=== PATIENT | female | born 1970 | race Caucasian/White ===

== ENCOUNTER 2018-08-02 07:27 | Day surgery (SDC) | payer BC ==
[~2018-08-02 07:27] MED LIST: Dextrose 5%-0.45% NaCl 1,000 ML IV SCH; Midazolam 1 MG/ML 2 ML SDV ONE; fentaNYL 100 MCG/2 ML SDV ONE
[2018-08-02] MEDS ORDERED: Midazolam 1 MG/ML 2 ML SDV IV ONE ×3 (07:28→09:00)
[2018-08-02] MEDS ORDERED: fentaNYL 100 MCG/2 ML SDV IV ONE ×3 (07:28→08:59)
--- NOTE | 2018-08-02 12:43 | OR ---
DATE: 08/02/2018 PROCEDURE: Esophagogastroduodenoscopy and multiple pinch biopsies. INSTRUMENT USED: [id number]-HQ190 Olympus video panendoscope. PREMEDICATIONS: No oral topical anesthesia used. Fentanyl 100 mcg intravenous, Versed 2 mg intravenous. Nasal O2 cannula. The procedure was done under pulse oximetry, BP recording, and quality assurance monitor final. INDICATION: The patient with longstanding heartburn and regurgitation as well as upper abdominal pain, unexplained and not responsive to medical measures, PPI. Esophagogastroduodenoscopy is performed for detection of any active erosive lesions, Garza's esophagus and/or malignancy also under consideration. H. pylori status to be determined. Endoscopic hemostasis therapy if needed. DESCRIPTION OF PROCEDURE:The scope was passed with ease. Adequate visualization of the esophagus was made from proximal to distal areas. No upper esophageal lesions identified. No distal esophageal stricture. No uphill or downhill esophageal varices. No Aurora-Larios tear. Sliding hiatal hernia was noted. Grade D erosive changes were noted by Sawyer criteria. No esophageal polyp or tumor mass identified. Gastric fundus examination by retroflexion showed Patel's erosions without bleeding from them. No gastric ulcer, malignant mass, or vascular ectasia identified. Duodenal bulb showed no ulcer. Visualized second part of the duodenum was unremarkable. Multiple pinch biopsies were taken from the gastric antrum and proximal body and sent for PyloriTek test for H. pylori and if negative in an hour, the tissue is to be sent for histopathology. No bleeding was noted from any of the visualized areas at the completion of examination. Photographs were taken of the duodenal bulb, gastric antrum, fundus, and distal esophagus. IMPRESSION: 1. Grade D gastroesophageal reflux disease. 2. Sliding hiatal hernia. 3. Patel's erosions. The patient tolerated the procedure well. [facility] /[id number]
== END 2018-08-02 11:00 | disposition home or self-care (01) ==
LOC: DL.ENDO 07:27
PROVIDERS: ATTEND Internal Medicine Gastroenterology
DX: K29.50 Unspecified chronic gastritis without bleeding (principal); K21.0 Gastro-esophageal reflux disease with esophagitis; K25.9 Gastric ulcer, unspecified as acute or chronic, without hemorrhage or perforation; K44.9 Diaphragmatic hernia without obstruction or gangrene; J45.909 Unspecified asthma, uncomplicated; E03.9 Hypothyroidism, unspecified; E06.3 Autoimmune thyroiditis; E66.09 Other obesity due to excess calories; Z68.35 Body mass index [BMI] 35.0-35.9, adult
CPT/HCPCS: 43239; 87077; J2250; J3010; J7042

== ENCOUNTER 2020-12-12 15:12 | Emergency (ER) | payer BC ==
[2020-12-12] MEDS ORDERED: Lidocaine 2% with EPINEPHrine 1:200,000 20 ML SDV INJECT ONE (15:45)
[2020-12-12] MEDS: Lidocaine 2% Viscous Solution 15 ML Cup PO ONE ×2 (15:53→16:55)
--- NOTE | 2020-12-12 15:58 | EDM.PDOC ---
<Rony Monge Garrett - Last Filed: 12/12/20 17:21> ED HPI GENERAL MEDICAL PROBLEM - General Chief Complaint: Skin Complaint Stated Complaint: SIST INFECTION TOP OF LEFT SIDE OF HEAD. SWELLING Time Seen by Provider: 12/12/20 15:35 Source of Information: Reports: Patient History Limitations: Reports: No Limitations - History of Present Illness INITIAL COMMENTS - FREE TEXT/NARRATIVE: 50 y/o F c/o abscess on the top of her head that started a few days ago. Pt saw her PCP who put her on Keflex. Pt has been taking her meds as prescribed but now has developed swelling down the L side of her face and over her L eye. Pt is now experiencing significant pain at the site of the abscess. Denies vision prob, fever, cough, chills, drugs, etoh, cp, db, abd pn, rash, recent trauma. Duration: Day(s): Location: Reports: Head Quality: Reports: Sharp Severity: Moderate Improves with: Reports: None Worsens with: Reports: None Left Head Pain Score (Numeric/FACES): 8 - Related Data Allergies Allergy/AdvReac Type Severity Reaction Status Date / Time Iodinated Contrast Media Allergy Hives Verified 12/12/20 15:20 [Iodinated Contrast- Oral and IV Dye] iodine Allergy Itching Verified 12/12/20 15:20 latex Allergy Itching Verified 12/12/20 15:20 Home Meds: Home Meds Ibuprofen 400 mg PO Q6H PRN 08/01/18 [History] Levothyroxine 75 mcg PO ACBREAKFAST 08/01/18 [History] Multivitamin [Multiple Vitamins] 1 tab PO DAILY 08/01/18 [History] Omeprazole 20 mg PO DAILY 08/01/18 [History] diphenhydrAMINE [Benadryl] 25 mg PO ASDIRECTED 08/01/18 [History] Past Medical History HEENT History: Reports: Allergic Rhinitis, Impaired Vision Cardiovascular History: Reports: None Respiratory History: Reports: None Gastrointestinal History: Reports: Colon Polyp, GERD, Hiatal Hernia Genitourinary History: Reports: UTI, Recurrent [employer] History: Reports: Endometriosis, Musculoskeletal History: Reports: None Neurological History: Reports: None Psychiatric History: Reports: None Endocrine/Metabolic History: Reports: Hypothyroidism, Obesity/BMI 30+, Other (See Below) Other Endocrine/Metabolic History: HX OF ALBERT'S THYROIDITIS Hematologic History: Reports: None Immunologic History: Reports: None Oncologic (Cancer) History: Reports: None Dermatologic History: Reports: None - Infectious Disease History Infectious Disease History: Reports: None - Past Surgical History Head Surgeries/Procedures: Reports: None HEENT Surgical History: Reports: None Cardiovascular Surgical History: Reports: None Respiratory Surgical History: Reports: None GI Surgical History: Reports: Colonoscopy, EGD, Polypectomy Female Surgical History: Reports: Section, Hysterectomy Endocrine Surgical History: Reports: None Neurological Surgical History: Reports: None Musculoskeletal Surgical History: Reports: None Oncologic Surgical History: Reports: None Dermatological Surgical History: Reports: None Social & Family History - Family History Neurological: Reports: Alzheimers Disease Oncologic: Reports: Lung, Thyroid - Tobacco Use Tobacco Use Status *Q: Never Tobacco User - Caffeine Use Caffeine Use: Reports: Coffee Other Caffeine Use: AM COFEE - Recreational Drug Use Recreational Drug Use: No ED ROS GENERAL - Review of Systems Review Of Systems: Comprehensive ROS is negative, except as noted in HPI. ED EXAM, SKIN/RASH Exam: See Below Exam Limited By: No Limitations General Appearance: Alert Eye Exam: Bilateral Eye: PERRL Ears: Normal External Exam, Normal Canal, Hearing Grossly Normal, Normal TMs Nose: Normal Inspection, Normal Mucosa, No Blood Throat/Mouth: Normal Inspection, Normal Lips, Normal Teeth, Normal Gums, Normal Oropharynx, Normal Voice, No Airway Compromise Head: Other (2 cm abscess to the top of her head about 8 cm behind the frontal hair line. Swelling to the L side anterior parietal region and above the L eye as well as L side of face.) Neck: Normal Inspection, Supple, Non-Tender, Full Range of Motion Respiratory/Chest: No Respiratory Distress, Lungs Clear, Normal Breath Sounds Cardiovascular: Normal Peripheral Pulses, Regular Rate, Rhythm GI/Abdominal: Soft, Non-Tender (Female) Exam: Deferred Rectal (Female) Exam: Deferred Neurological: Alert, Oriented Psychiatric: Normal Affect, Normal Mood Skin: Warm, Dry, Intact, Other (except for previously described area of head.) Departure - Departure Disposition: Home, Self-Care 01 Condition: Good Clinical Impression: Abscess - Discharge Information *PRESCRIPTION DRUG MONITORING PROGRAM REVIEWED*: Not Applicable *COPY OF PRESCRIPTION DRUG MONITORING REPORT IN PATIENT DEACON: Not Applicable Instructions: Skin Abscess, [id number] Forms: ED Department Discharge Additional Instructions: Rx given Bactrim DS #20 to take 1 by mouth 2 times per day for 10 days. Follow up with your primary care facility in 10- 14 days to have your stitches removed. Use Tylenol and Motrin for pain as need. Keep the incision site clean and dry for 24 hrs. Expect some drainage from the incision site. Use Bacitracin or triple antibiotic ointment on incision site. If any new symptoms or concerns develop contact your primary care physician or return to the ER <Brian Van - Last Filed: 12/12/20 17:31> ED SKIN PROCEDURES - I&D Site: anterior scalp Skin Prep: Providone-Iodine (Betadine) Local Anesthesia: Lidocaine: 2% with EPI Local Anesthetic Volume: Other (8 mL) Area Incised With: 15 Blade Drainage: Purulent, Bloody, Moderate Amount Probed to Break Up Loculations: Yes Packed With: None Sterile Dressinx4(s) Complications: No Progress/Comments: The incision was 4 cm in length and was partially closed at the conclusion of the procedure using 2 stiches (3-0). The incision was partially left open to promote drainage. Course - Vital Signs Last Recorded V/S: Last Vital Signs Temp 97.1 F 12/12/20 15:24 Pulse 80 12/12/20 15:24 Resp 18 12/12/20 15:24 BP 136/82 12/12/20 15:24 Pulse Ox 97 12/12/20 15:24 - Orders/Labs/Meds Orders: Active Orders 24 hr Category Date Time Status CULTURE WOUND [RM] Stat Lab 12/12/20 17:22 Ordered Meds: Medications Discontinued Medications Generic Name Dose Route Start Last Admin Trade Name Juan Diego PRN Reason Stop Dose Admin Vancomycin HCl 1,500 mg/ 500 mls @ 333.333 mls/hr 12/12/20 15:48 12/12/20 16:02 Sodium Chloride IV 12/12/20 17:17 333.333 mls/hr ONETIME ONE Administration Ibuprofen 800 mg 12/12/20 17:01 12/12/20 17:06 Ibuprofen 800 Mg Tab PO 12/12/20 17:02 800 mg ONETIME ONE Administration Lidocaine HCl 15 ml 12/12/20 15:45 12/12/20 16:55 Lidocaine 2% Viscous Solution 15 Ml Cup PO 12/12/20 15:46 Not Given ONETIME ONE Lidocaine/Epinephrine 20 ml 12/12/20 15:45 12/12/20 15:53 Lidocaine 2% With Epinephrine 1:200,000 20 Ml Sdv INJECT 12/12/20 15:46 20 ml ONETIME ONE Administration Departure - Departure Time of Disposition: 17:31 Sepsis Event Note (ED) - Focused Exam Vital Signs: Vital Signs Temp Pulse Resp BP Pulse Ox 12/12/20 15:24 97.1 F 80 18 136/82 97 - My Orders Last 24 Hours: My Active Orders 12/12/20 17:22 CULTURE WOUND [RM] Stat - Assessment/Plan Last 24 Hours: My Active Orders 12/12/20 17:22 CULTURE WOUND [RM] Stat
[2020-12-12] MEDS ORDERED: Ibuprofen 800 MG Tab PO ONE (17:01)
== END 2020-12-12 17:40 | disposition home or self-care (01) ==
LOC: DL.ED 15:12
DX: L02.811 Cutaneous abscess of head [any part, except face] (principal); K21.9 Gastro-esophageal reflux disease without esophagitis; E03.9 Hypothyroidism, unspecified; E66.9 Obesity, unspecified; Z68.35 Body mass index [BMI] 35.0-35.9, adult; Z91.040 Latex allergy status; Z91.041 Radiographic dye allergy status; Z79.899 Other long term (current) drug therapy; Z91.048 Other nonmedicinal substance allergy status
CPT/HCPCS: 10060; 87070; 96365; 96366; 99283; A9270; J3370; J7040

== ENCOUNTER 2021-08-26 06:45 | Day surgery (SDC) | payer BC ==
[~2021-08-26 06:45] MED LIST changes: -Dextrose 5%-0.45% NaCl 1,000 ML IV SCH; +Sodium Chloride 0.9% 10 ML Syringe FLUSH PRN; +Sodium Chloride 0.9% 10 ML Syringe FLUSH SCH
[2021-08-26] MEDS ORDERED: fentaNYL 100 MCG/2 ML SDV IV ONE ×6 (06:46→07:49)
[2021-08-26] MEDS ORDERED: Midazolam 1 MG/ML 2 ML SDV IV ONE ×7 (06:46→07:38)
[2021-08-26] MEDS: Dextrose 5%-0.45% NaCl 1,000 ML IV SCH ×2 (07:13→10:48)
[2021-08-26] MEDS ORDERED: Sodium Chloride 0.9% 1,000 ML IV ONE (08:30)
== END 2021-08-26 12:09 | disposition home or self-care (01) ==
LOC: DL.ENDO 06:45
PROVIDERS: ATTEND Internal Medicine Gastroenterology
DX: D50.9 Iron deficiency anemia, unspecified (principal); E03.9 Hypothyroidism, unspecified; E06.3 Autoimmune thyroiditis; K21.9 Gastro-esophageal reflux disease without esophagitis; E66.09 Other obesity due to excess calories; K25.9 Gastric ulcer, unspecified as acute or chronic, without hemorrhage or perforation; K44.9 Diaphragmatic hernia without obstruction or gangrene; Z90.711 Acquired absence of uterus with remaining cervical stump; Z91.041 Radiographic dye allergy status; Z91.040 Latex allergy status; Z01.812 Encounter for preprocedural laboratory examination; Z20.822 Contact with and (suspected) exposure to COVID-19
CPT/HCPCS: J2250; J3010; J7030; J7042; U0002

== ENCOUNTER 2021-09-23 06:00 | Day surgery (SDC) | payer BC ==
[~2021-09-23 06:00] MED LIST changes: +Dextrose 5%-0.45% NaCl 1,000 ML IV SCH; -Midazolam 1 MG/ML 2 ML SDV ONE; -fentaNYL 100 MCG/2 ML SDV ONE
[2021-09-23] MEDS ORDERED: Midazolam 1 MG/ML 2 ML SDV IV ONE ×3 (06:01→07:23)
[2021-09-23] MEDS ORDERED: fentaNYL 100 MCG/2 ML SDV IV ONE ×2 (06:01→07:22)
[2021-09-23] MEDS ORDERED: fentaNYL 100 MCG/2 ML SDV ONE (06:07)
[2021-09-23] MEDS ORDERED: Midazolam 1 MG/ML 2 ML SDV ONE (06:07)
== END 2021-09-23 10:07 | disposition home or self-care (01) ==
LOC: DL.ENDO 06:00
PROVIDERS: ATTEND Internal Medicine Gastroenterology
DX: K44.9 Diaphragmatic hernia without obstruction or gangrene (principal); D50.9 Iron deficiency anemia, unspecified; E66.09 Other obesity due to excess calories; E03.9 Hypothyroidism, unspecified; K21.9 Gastro-esophageal reflux disease without esophagitis; E06.3 Autoimmune thyroiditis; E53.8 Deficiency of other specified B group vitamins; Z91.041 Radiographic dye allergy status; Z91.040 Latex allergy status; Z90.711 Acquired absence of uterus with remaining cervical stump; Z01.812 Encounter for preprocedural laboratory examination; Z20.822 Contact with and (suspected) exposure to COVID-19; Z68.32 Body mass index [BMI] 32.0-32.9, adult
CPT/HCPCS: 43239; 87077; 87635; J2250; J3010; J7042; U0002